=== PATIENT | female | born 1960 | race Caucasian/White ===

== ENCOUNTER 2022-02-22 17:17 | Emergency (ER) | payer MEDICARE ==
[~2022-02-22] VITALS: Ht 162.6 cm; Wt 78.5 kg
[2022-02-22 18:20] LABS: HEMATOCRIT 44.6 % (36-48); MEAN CORPUSCULAR HGB CONC 34.3 g/dL (32.0-36.0); MEAN CORPUSCULAR VOLUME 96.1 fL (79-99); PLATELET COUNT (AUTO) 262 K/uL (130-400); RED BLOOD CELL COUNT(AUTO) 4.64 MIL/uL (4.00-5.50); WHITE BLOOD COUNT (AUTO) 9.4 K/uL (4.8-10.8)
[2022-02-22 18:35] LABS: CREATININE 0.9 mg/dL (0.5-1.5); POTASSIUM 4.3 mmol/L (3.5-5.1)
[2022-02-22 18:40] LABS: ALBUMIN 3.6 g/dL (3.5-5.0)
[2022-02-22 18:41] LABS: BASOPHILS % (AUTO) 0.5 % (0.0-5.0); EOSINOPHILS % (AUTO) 1.3 % (0.0-8.0); LYMPHOCYTES % (AUTO) 9.7 % (21.0-51.0); NEUTROPHILS % (AUTO) 82.2 % (40.0-77.0)
[2022-02-22] MEDS ORDERED: 0.9%NACL 1000ML 1,000 ML IV ONE (19:00)
[2022-02-22] MEDS ORDERED: MECL-226 PO (21:07)
[2022-02-22 21:24] VITALS: BP 131/67
== END 2022-02-22 21:44 | disposition home or self-care (01) ==
LOC: EDH 17:17
DX: R42 Dizziness and giddiness (principal); Z20.822 Contact with and (suspected) exposure to COVID-19; E78.00 Pure hypercholesterolemia, unspecified; I10 Essential (primary) hypertension; K21.9 Gastro-esophageal reflux disease without esophagitis; G45.9 Transient cerebral ischemic attack, unspecified; R55 Syncope and collapse
CPT/HCPCS: 99285; 84484; 80053; 85025; 87880; 87804 ×2; 36415; 87635; 71045; 70450; 93880; 93005; C9803; 96360

== ENCOUNTER 2024-05-12 19:46 | Observation (INO) | payer MEDICARE ==
[~2024-05-12] VITALS: Ht 162.6 cm; Wt 74.8 kg
[~2024-05-12 19:46] MED LIST: MECL-226 PO
--- NOTE | 2024-05-12 19:55 | NUR ---
PT TO CT AT THIS TIME ACCOMPANIED BY PRIMARY NURSE AND MANAGER CLEANING.
[2024-05-12] MEDS ORDERED: IOHEXOL 350 MG/ML 100ML INFUS..BTL IV ONE (20:04)
--- NOTE | 2024-05-12 20:05 | ERN ---
General Chief Complaint: Trauma Activation Stated Complaint: TRAUMA FALL Time Seen by MD: 19:53 History of Present Illness Initial Comments Ms. Hinton is a very pleasant 63-year-old female with significant past medical history of alcohol abuse, history of multiple falls, breast cancer, who presents today with from right-sided facial pain. Patient has a history of recent falls . Patient reports that she was intoxicated five days ago and just fell. 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 Past Medical History Past Medical History: GERD, High Cholesterol, Hypertension Past Surgical History: None ROS Dictation Constitutional: Negative for fever,chills, and weight loss Eyes: Positive for injury and pain ENT: Positive for pain and injury Cardiovascular: Negative for chest pain, palpitations, and edema Respiratory: Negative for shortness of breath, cough, and wheezing, Abdomen/GI: Negative for abdominal pain, nausea, vomiting, diarrhea, and constipation Back: Negative for injury and pain : Negative for injury, bleeding and discharge MS/Extremity: Positive for injury Skin: Positive for discoloration Neuro: Negative for headache, weakness, numbness, tingling, and seizure Psych: Negative for suicide ideation, homicidal ideation, and hallucinations Physical Exam Physical Exam Dictation General: awake, alert Head/Face: Swelling and bruising over the right side of her face Eyes: PERRL, EOMI, vision at baseline ENT: Positive for neck pain Neck: Trachea midline, supple Cardiovascular: RRR, normal S1/S2, No MRGs, no JVD Respiratory: CTAB, no respiratory distress, No rales or wheezes Abdomen: Soft, non-tender, non-distended, normal bowel sounds, no guarding or re bound. Skin: Warm, dry, normal turgor, no rash MS/Extremity: Pulses equal, no cyanosis Neuro: COAx4, GCS 15, Psych: Normal behavior, mood, and affect normal Results Laboratory and Microbiology Lab and Micro Result Laboratory Tests Test 05/12/24 20:47 White Blood Count 8.8 K/uL (4.8-10.8) Red Blood Count 3.34 MIL/uL (4.00-5.50) L Hemoglobin 11.1 g/dL (12.0-16.0) L Hematocrit 32.2 % (36-48) L Mean Corpuscular Volume 96.4 fL (79-99) Mean Corpuscular Hemoglobin 33.2 pg (27.0-33.0) H Mean Corpuscular Hemoglobin Concent 34.5 g/dL (32.0-36.0) Red Cell Distribution Width 13.2 % (11.0-15.5) Platelet Count 257 K/uL (130-400) Mean Platelet Volume 8.4 fL (7.5-10.5) Immature Granulocyte % (Auto) 0.9 % (0-1) Neutrophils (%) (Auto) 77.6 % (40.0-77.0) H Lymphocytes (%) (Auto) 8.6 % (21.0-51.0) L Monocytes (%) (Auto) 10.9 % (3.0-13.0) Eosinophils (%) (Auto) 1.5 % (0.0-8.0) Basophils (%) (Auto) 0.5 % (0.0-5.0) Neutrophils # (Auto) 6.8 K/uL (1.8-7.7) Lymphocytes # (Auto) 0.8 K/uL (1.0-4.8) L Monocytes # (Auto) 1.0 K/uL (0.1-1.0) Eosinophils # (Auto) 0.13 K/uL (0.00-0.70) Basophils # (Auto) 0.04 K/uL (0.00-0.20) Absolute Immature Granulocyte (auto 0.08 K/uL (0-1) Nucleated Red Blood Cells 0.0 % (0.0-0.19) White Cell Morphology Comment See comments Sodium Level 123 mmol/L (136-145) L Potassium Level 3.0 mmol/L (3.5-5.1) *L Chloride Level 90 mmol/L (101-111) *L Carbon Dioxide Level 26 mmol/L (21-32) Blood Urea Nitrogen 10 mg/dL (7-18) Creatinine 1.0 mg/dL (0.5-1.0) Glomerular Filtration Rate Calc 64 mL/min (>90) Random Glucose 97 mg/dL (70-105) Total Calcium 8.9 mg/dL (8.5-10.1) Total Creatine Kinase 28 U/L (21-232) Troponin I High Sensitivity 8 ng/L (4-50) Serum Alcohol < 3 mg/dL (0-10) MDM Patient was have a depressed sodium that will need to be replaced. Patient will be admitted for careful monitoring. MDM: Differential diagnosis: Hyponatremia Rationale: Tests considered and ordered secondary to shared decision making include: labs, ECG and radiology Previous outside records reviewed: Old ER visits. Risk of complication and/or morbidity or mortality of patient management: None Medications-Per medication reconciliation Need for hospitalization: Patient does meet criteria for hospitalization. Need for emergency major/minor surgery: No There are no social concerns with this patient. Prescription drug management Prescriptions will include symptomatic care Patient's prior external medical records from other ER visits were reviewed by me as indicated. Prior testing and results from previous visits were reviewed. Prior tests were taken into account with medical decision making and resource utilization, independent historian/historians were used to obtain complete medical history. I independently interpreted the test that were performed, results were reviewed by me and considered findings on radiology if ordered. Medical management and examination interpretation discussions were had by me with other qualified healthcare professionals as indicated for the patient's care. ED Course Orders Procedure Category Date Status Time Ct Maxillofacial W/O CT 05/12/24 Resulted Contrast 19:48 Ct Head/Brain W/O CT 05/12/24 Resulted Contrast 19:48 Ct Cervical Spine W/O CT 05/12/24 Resulted Contrast 19:48 Ct Chest/Abd/Pelv CT 05/12/24 Resulted W/Conrast 19:54 12 Lead Ekg Tracing- EKG 05/12/24 Logged Technical 19:55 Cbc With Differential LAB 05/12/24 Complete 19:55 Basic Metabolic Panel LAB 05/12/24 Complete 19:55 Troponin I High LAB 05/12/24 Complete Sensitivity 19:55 Alcohol, Blood LAB 05/12/24 Complete 19:55 Creatine Kinase, Total LAB 05/12/24 Complete 19:55 Urinalysis Profile LAB 05/12/24 Logged 19:55 Iohexol (Omnipaque) PHA 05/12/24 Complete 20:04 Potassium Bicarb/Cit PHA 05/12/24 Complete Ac 25meq (K-Lyte Ta 21:30 0.9%Nacl 1000ml (Ns PHA 05/12/24 Complete 1000ml) 21:30 Magnesium LAB 05/12/24 In Process 21:31 Phosphorus LAB 05/12/24 In Process 21:31 Admit Orders ADM 05/12/24 Transmitted 21:41 Initiate Po REJI 05/12/24 Transmitted Hypokalemia Protoc 21:44 Potassium Chl 20 PHA 05/12/24 Transmitted Meq/100ml Iv 22:00 Potassium Chl 10% PHA 05/12/24 Transmitted Elixir 20meq (Kcl 10% 22:00 Potassium Chloride PHA 05/12/24 Transmitted 20meq Er (K-Dur/Klor- 22:00 Notify Physician If CPOE 05/12/24 Transmitted There Is 21:44 Notify Md On The Next CPOE 05/12/24 Transmitted 21:44 Notify Md On The CPOE 05/12/24 Transmitted Next(Cont.) 21:44 Magnesium 2gm Iv PHA 05/12/24 Transmitted 22:00 Initiate Hypoglycemia REJI 05/12/24 Transmitted Protocol 21:44 Dextrose 50%-Water PHA 05/12/24 Transmitted (D50w) 22:00 Glucagon 1mg Kit PHA 05/12/24 Transmitted (Glucagon 1mg Kit) 22:00 Vital Signs Every 4 CPOE 05/12/24 Transmitted Hours 21:44 Orthostatic Vital CPOE 05/12/24 Transmitted Signs 21:44 I&O Q Shift CPOE 05/12/24 Transmitted 21:44 Activity: Br W/Brp CPOE 05/12/24 Transmitted With Assist 21:44 O2 Order RT 05/12/24 Transmitted 21:44 Cbc With Differential LAB 05/13/24 Verified 04:00 Basic Metabolic Panel LAB 05/13/24 Verified 04:00 Magnesium LAB 05/13/24 Verified 04:00 Phosphorus LAB 05/13/24 Verified 04:00 Thyroid Stimulating LAB 05/13/24 Verified Hormone 04:00 Lovenox 40mg Sq Daily PHA 05/13/24 Transmitted 09:00 Tylenol 650mg Po Q6hr PHA 05/12/24 Transmitted Fever 22:00 Tylenol 650mg Pr PHA 05/12/24 Transmitted Q6hrs Prn 22:00 Lactulose 30ml Q6hrs PHA 05/12/24 Transmitted PRN 22:00 Colace 100mg Po Daily PHA 05/12/24 Transmitted 22:00 Restoril 15mg Po Hs PHA 05/12/24 Transmitted PRN 22:00 Zofran 4mg Ivp Q6hrs PHA 05/12/24 Transmitted PRN 22:00 Hydralazine 10mg Ivp PHA 05/12/24 Transmitted PRN 22:00 Telemetry Monitoring CPOE 05/12/24 Transmitted 21:44 Initiate REJI 05/12/24 Transmitted Hyperglycemia Protoco 21:44 Regular Insulin-Ss1/2 PHA 05/13/24 Transmitted 07:30 Current Medications Medications (Trade) Dose Ordered Sig/Marlon Route PRN Reason Start Time Stop Time Status Last Admin Dose Admin Iohexol (Omnipaque) 35,000 mg STK-MED ONCE IV 05/12/24 20:04 05/12/24 20:05 DC Potassium Bicarbonate (K-Lyte Tablet Eff 25 Meq Tablet.eff) 50 meq ONCE ONCE PO 05/12/24 21:30 05/12/24 21:31 DC Sodium Chloride 1,000 ml @ 0 mls/hr ONCE ONCE IV 05/12/24 21:30 05/12/24 21:31 DC Vital Signs Date Time Temp Pulse Resp B/P (MAP) Pulse Ox O2 Delivery O2 Flow Rate FiO2 05/12/24 19:48 96.6 82 16 136/78 97 Room Air DX & DISP Disposition: Inpatient Departure Impression: Primary Impression: Hyponatremia Condition: Stable Referrals: MARCI HARVEY MD (PCP) KRISSY POOLE MD May 12, 2024 20:05
--- NOTE | 2024-05-12 20:35 | NUR ---
PT BACK IN ROOM [address]
--- NOTE | 2024-05-12 20:36 | HMCIMG ---
CT HEAD WITHOUT CONTRAST INDICATION: Fall TECHNIQUE: Noncontrast axial helical CT images from the vertex through the skull base using 5 mm slice thickness without contrast material. CT was performed with one or more of the following dose reduction techniques: Automated exposure control, adjustment of the mA and/or kV according to patient size, or use of iterative reconstruction technique. COMPARISON: None FINDINGS: Large superior scalp hematoma. The cerebral and cerebellar hemispheres are age-appropriate in appearance. No evidence for abnormal extra-axial fluid collections or masses. The ventricles and sulci are normal in size and configuration. No evidence for intracranial parenchymal, epidural, or subdural hemorrhage, mass effect or midline shift. The fink-white matter differentiation is well preserved. No secondary evidence to suggest acute ischemia. The brainstem and cerebellum appear normal. The visualized orbits appear unremarkable. The visible paranasal sinuses and mastoid air cells are clear. The calvarium appears normal. IMPRESSION: Large superior scalp hematoma without subjacent fracture or any acute intracranial process.
--- NOTE | 2024-05-12 20:40 | HMCIMG ---
CT CERVICAL SPINE WITHOUT CONTRAST INDICATION: Neck pain TECHNIQUE: Contiguous axial computed tomography imaging using 2 mm slice thickness through the cervical spine. Reconstructions in the sagittal and coronal planes. CT was performed with one or more of the following dose reduction techniques: Automated exposure control, adjustment of the mA and/or kV according to patient size, or use of iterative reconstruction technique. COMPARISON: None. FINDINGS: Straightening of the normal lordosis may be related to overlying muscle spasm, underlying degenerative joint disease and/or patient positioning. Vertebral bodies are normal stature without evidence for compression deformity or fracture. No evidence for subluxation. Multilevel moderate cervical spondylosis. The craniocervical junction appears normal. The atlantoaxial articulation is within normal limits. The dens is intact. The pre- and paravertebral soft tissues appear unremarkable. IMPRESSION: No evidence for fracture or subluxation.
--- NOTE | 2024-05-12 20:41 | HMCIMG ---
CT FACIAL BONES WITHOUT CONTRAST INDICATION: Fall TECHNIQUE: 3D helical CT acquisition through the facial bones with coronal and sagittal reformatting. CT was performed with one or more of the following dose reduction techniques: Automated exposure control, adjustment of the mA and/or kV according to patient size, or use of iterative reconstruction technique. COMPARISON: None FINDINGS: No evidence for orbital wall or zygomatic arch fracture. The globes are symmetrical in their appearance, and normal in attenuation. The optic nerves and muscles are normal in caliber. No evidence of preseptal or postseptal mass. No evidence for facial bone fracture. No nasal bone fracture identified. Cribriform plate and janeth stanley are intact. Nasal septum is midline. The visible paranasal sinuses are clear. Middle and inferior nasal turbinates appear unremarkable. Ostiomeatal units are patent bilaterally. IMPRESSION: No evidence for acute facial fracture.
--- NOTE | 2024-05-12 20:46 | HMCIMG ---
CT CHEST WITH CONTRAST. CT ABDOMEN WITH CONTRAST. CT PELVIS WITH CONTRAST INDICATION: Chest and abdominal pain; No specific site of pain/injury provided in patient history by the ordering service, and optimal evaluation is limited as result. TECHNIQUE: Routine 5 mm thick axial images were acquired from the thoracic inlet through the pelvis after the intravenous administration of 100 mL of Isovue [address] was performed with one or more of the following dose reduction techniques: Automated exposure control, adjustment of the mA and/or kV according to patient size, or use of iterative reconstruction technique. COMPARISON: None FINDINGS: CT CHEST: Left breast scarring/surgical clips. The heart size is normal. No pericardial effusion noted. No evidence for thoracic aortic aneurysm or dissection.. The trachea and airways are patent. No evidence for pulmonary nodule, consolidation, cavitary lesion, or other abnormal pulmonary parenchymal opacity. No axillary, hilar, or mediastinal lymphadenopathy. No pleural effusion or pneumothorax identified. A few chronic posterior right rib fracture deformities. Sternum is intact. CT ABDOMEN: The liver is normal in size and smooth in contour without lesions or biliary duct dilation. The spleen is normal in size.. The gallbladder appears normal. The pancreas appears normal without pancreatic duct dilation. The adrenal glands appear normal. Both kidneys appear normal. . No evidence for intra-abdominal free air or free or organized fluid collection. No aortic aneurysmal dilation.. CT PELVIS: No evidence for free air or free or organized pelvic fluid collection. No significant pelvic adenopathy detected. Visualized small and large bowel loops appear unremarkable. Terminal ileum also appears normal. The appendix is absent. Mild thoracolumbar spondylosis. IMPRESSION: No specific site of pain/injury provided in patient history by the ordering service, and therefore, optimal evaluation is limited. No evidence for any acute thoracic, abdominal, pelvic, or spinal injury. Additional minor findings, postsurgical changes, and pertinent negatives as reported.
--- NOTE | 2024-05-12 20:56 | NUR ---
PT DOWNGRADED AT THIS TIME AND C-COLLAR REMOVED PER DR. POOLE.
[2024-05-12 21:03] LABS: BASOPHILS # (AUTO) 0.04 K/uL (0.00-0.20); BASOPHILS % (AUTO) 0.5 % (0.0-5.0); EOSINOPHILS # (AUTO) 0.13 K/uL (0.00-0.70); EOSINOPHILS % (AUTO) 1.5 % (0.0-8.0); HEMATOCRIT 32.2 % (36-48); IMMATURE GRANULOCYTE ABSOLUTE 0.08 K/uL (0-1); LYMPHOCYTES # (AUTO) 0.8 K/uL (1.0-4.8); LYMPHOCYTES % (AUTO) 8.6 % (21.0-51.0); MEAN CORPUSCULAR HEMOGLOBIN 33.2 pg (27.0-33.0); MEAN CORPUSCULAR HGB CONC 34.5 g/dL (32.0-36.0); MEAN CORPUSCULAR VOLUME 96.4 fL (79-99); MONOCYTES % (AUTO) 10.9 % (3.0-13.0); NEUTROPHILS # (AUTO) 6.8 K/uL (1.8-7.7); NEUTROPHILS % (AUTO) 77.6 % (40.0-77.0); PLATELET COUNT (AUTO) 257 K/uL (130-400); RED BLOOD CELL COUNT(AUTO) 3.34 MIL/uL (4.00-5.50); RED CELL DISTRIBUTION WIDTH 13.2 % (11.0-15.5); WHITE BLOOD COUNT (AUTO) 8.8 K/uL (4.8-10.8)
[2024-05-12 21:24] LABS: CARBON DIOXIDE 26 mmol/L (21-32); CREATINE KINASE, TOTAL 28 U/L (21-232); GLOMERULAR FILTR. RATE CALC 64 mL/min (>90); GLUCOSE,RANDOM 97 mg/dL (70-105); SODIUM SERUM 123 mmol/L (136-145); UREA NITROGEN, BLOOD 10 mg/dL (7-18)
[2024-05-12 21:25] LABS: ALCOHOL, BLOOD < 3 mg/dL (0-10)
[2024-05-12 21:28] LABS: CHLORIDE 90 mmol/L (101-111)
[2024-05-12 21:53] LABS: MAGNESIUM 1.7 mg/dL (1.80-2.40); PHOSPHORUS 3.5 mg/dL (2.5-4.9)
[2024-05-12] MEDS ORDERED: acetaMINOPHEN 650 MG SUPPOSITORY RC PRN (22:00)
[2024-05-12] MEDS ORDERED: hydrALAZine 20MG/ML VIAL IV PRN (22:00)
[2024-05-12] MEDS ORDERED: DEXTROSE 50%-WATER 50 ML DISP.SYRIN IV PRN (22:00)
[2024-05-12] MEDS ORDERED: PoTASSium chl 10% ELIXIR 20MEQ 20 MEQ/15 ML UDCUP PO PRN (22:00)
[2024-05-12] MEDS ORDERED: TEMAZepam 15 MG CAPSULE PO PRN (22:00)
[2024-05-12] MEDS ORDERED: PoTASSium chloRIDE 20MEQ/100ML 100 ML IV PRN (22:00)
[2024-05-12] MEDS ORDERED: ondanSETRON 4MG INJ IVP PRN (22:00)
[2024-05-12] MEDS ORDERED: doCUSate SODIUM 100 MG CAP PO PRN (22:00)
[2024-05-12] MEDS ORDERED: PoTASSium chloRIDE 20MEQ ER 20 MEQ ERTAB PO PRN (22:00)
[2024-05-12] MEDS ORDERED: LACTULOSE 20 GM/30 ML UDCUP PO PRN (22:00)
[2024-05-12] MEDS ORDERED: GLUCAGON 1MG KIT 1 MG ML IM PRN (22:00)
[2024-05-12] MEDS: PoTASSium BIcarbonate/CIT AC 25 MEQ TABLET.EFF PO ONE (22:16)
[2024-05-12] MEDS: 0.9%NACL 1000ML 1,000 ML IV ONE (22:16)
[2024-05-12 22:33] VITALS: O2SAT 99
--- NOTE | 2024-05-12 22:46 | HP ---
[facility] HISTORY & PHYSICAL Date Patient Seen: May 12, 2024 Time of Visit: 22:46 Supervising Physician: Dr. Israel Watt Primary Care Physician: Dr. Joel Javier Outpatient Specialists: Inpatient Consults: PROBLEM LIST: Facial injury s/p fall secondary to ETOH Electrolyte derangement (hyponatremia, hypochloremia, hypokalemia, hypomagnesemia) Acute kidney injury, GFR 64 Alcoholism Anemia Chronic problem list: Left breast cancer, GERD, hypercholesteremia, hypertension, alcoholism, prior episode of electrolyte derangement HPI: Ms. Hinton is a very pleasant 63-year-old female with history of alcohol abuse, history of multiple falls, breast cancer, who presented [place] [facility] [place] evaluation of right-sided facial pain. Patient has a history of recent falls . Patient reports that she was intoxicated five days ago and just fell. The patient has significant bruising over the right face and neck pain. Remarkable lab results: Sodium 123, potassium 3.0, chloride 90, magnesium 1.7. GFR 64, Hemoglobin 11.1, hematocrit 32.2, RBC 3.34, ED provider request patient be admitted to the hospital for the diagnosis of hyponatremia. Multiple CTs were done and were negative. Impression: No evidence of acute thoracic, abdominal, pelvic, or spinal injury. I went to assess patient at bedside, patient's partner was at bedside. Patient denied chest pain, shortness of breath, any other pain, problem or concern at present. The patient reports that she has had trouble with excessive alcohol for years. Patient admits to alcoholism. Patient reports she has tried to quit alcohol but it is hard and has not succeeded. I informed patient and significant other of labs, diagnostics, and plan of care. Patient verbalized understanding is in agreement with the plan. Plan and assessment are listed below. PAST MEDICAL HX: see above PAST SURGICAL HX: Left lumpectomy, appendectomy in 2015, tonsillectomy as a child, Port-A-Cath insertion and removal of Port-A-Cath. SOCIAL HISTORY: No tobacco, or illicit drug use + ETOH abuse FAMILY HISTORY: Mother: lung CA Sister: skin CA Coded Allergies: No Known Drug Allergies (Unverified Allergy, Unknown, 02/22/22) REVIEW OF SYSTEMS: 12 point ROS reviewed with patient. Pertinent positives mentioned above. Otherwise negative. PHYSICAL EXAM: GENERAL: Alert, weak, awake oriented x 4 HEENT: EOMI, Sclera non icteric, moist mucosa. Right eye has redness to the sclera. NECK: Supple, no JVD, trachea midline LUNGS: Clear breath sounds bilaterally. No wheezes HEART: Regular rate and rhythm. Normal S1 and S2, without murmurs ABD: Obese. Abdomen soft, nontender. Bowel sounds present EXT: No clubbing cyanosis or edema SKIN: Large dark purple bruising to right side of face. NEURO: Alert and oriented X4, no neuro deficits noted. Vital Signs (last 8hr) Date Time Temp Pulse Resp B/P (MAP) Pulse Ox O2 Delivery O2 Flow Rate FiO2 05/12/24 22:33 97.2 65 16 128/86 99 Room Air* 0 21 05/12/24 19:48 96.6 82 16 136/78 97 Room Air LABS: Hematology Labs: Test 05/12/24 20:47 Range/Units White Blood Count 8.8 4.8-10.8 K/uL Red Blood Count 3.34 L 4.00-5.50 MIL/uL Hemoglobin 11.1 L 12.0-16.0 g/dL Hematocrit 32.2 L 36-48 % Mean Corpuscular Volume 96.4 79-99 fL Mean Corpuscular Hemoglobin 33.2 H 27.0-33.0 pg Mean Corpuscular Hemoglobin Concent 34.5 32.0-36.0 g/dL Red Cell Distribution Width 13.2 11.0-15.5 % Platelet Count 257 130-400 K/uL Mean Platelet Volume 8.4 7.5-10.5 fL Immature Granulocyte % (Auto) 0.9 0-1 % Neutrophils (%) (Auto) 77.6 H 40.0-77.0 % Lymphocytes (%) (Auto) 8.6 L 21.0-51.0 % Monocytes (%) (Auto) 10.9 3.0-13.0 % Eosinophils (%) (Auto) 1.5 0.0-8.0 % Basophils (%) (Auto) 0.5 0.0-5.0 % Neutrophils # (Auto) 6.8 1.8-7.7 K/uL Lymphocytes # (Auto) 0.8 L 1.0-4.8 K/uL Monocytes # (Auto) 1.0 0.1-1.0 K/uL Eosinophils # (Auto) 0.13 0.00-0.70 K/uL Basophils # (Auto) 0.04 0.00-0.20 K/uL Absolute Immature Granulocyte (auto 0.08 0-1 K/uL Nucleated Red Blood Cells 0.0 0.0-0.19 % White Cell Morphology Comment See comments Chemistry Labs: Test 05/12/24 20:47 Range/Units Sodium Level 123 L 136-145 mmol/L Potassium Level 3.0 *L 3.5-5.1 mmol/L Chloride Level 90 *L 101-111 mmol/L Carbon Dioxide Level 26 21-32 mmol/L Blood Urea Nitrogen 10 7-18 mg/dL Creatinine 1.0 0.5-1.0 mg/dL Glomerular Filtration Rate Calc 64 >90 mL/min Random Glucose 97 70-105 mg/dL Total Calcium 8.9 8.5-10.1 mg/dL Phosphorus Level 3.5 2.5-4.9 mg/dL Magnesium Level 1.70 L 1.80-2.40 mg/dL Total Creatine Kinase 28 21-232 U/L Troponin I High Sensitivity 8 4-50 ng/L DIAGNOSTICS / RADIOLOGY RESULTS: [ ] PLAN Admit to medical floor with telemetry monitoring. Water restrictions of a 1200 mL. Correct serum slowly up to 5-6 mEq a day. Monitor sodium every 6 hours Monitor electrolytes and treat accordingly. Monitor renal and liver function. CIWA. Education on ETOH cessation. Consult case management for assistance [facility] placement in inpatient alcohol rehab. DVT and GI prophylaxis. NEURO: Minimize central acting medications as possible. Maintain fall precautions, adequate lighting during the day PULMONARY: Supplemental 02 as needed. Maintain aspiration precautions at all times CARDIOVASCULAR: Follow hemodynamics. Vital signs per facility protocol GI & NUTRITION: Continue with nutritional support. Continue stool softeners and laxatives as needed. KIDNEYS & ELECTROLYTES: Strict monitoring of intake, output and overall fluid balance. Avoid nephrotoxic medications to the extent possible. Medications to be dosed according to renal function. Monitor electrolytes and replace as needed ENDOCRINE: Maintain blood glucose between 100-180 at all times. Hypoglycemia protocol in place INFECTIOUS DISEASE: Trend temperature, WBC and procalcitonin level Follow cultures, deescalate antibiotics as soon as possible. Panculture if new onset fever ONCOLOGY/HEMATOLOGY/COAGULATION: Monitor for s/s of bleeding Monitor hemoglobin, coagulation studies as needed SKIN: Pressure ulcer prevention per facility protocol Specialty mattress ORTHO/REHAB: Continue PT/OT Prophylaxis: Continue GI and DVT prophylaxis Code Status: Full Resuscitation Disposition: TBD Other: Total patient care time exceeds 35 minutes excluding all procedures. FELIX MEEKP May 12, 2024 22:46
[2024-05-12 22:50] LABS: APPEARANCE,URINE CLEAR (CLEAR); BILIRUBIN,URINE NEGATIVE (NEGATIVE); COLOR,URINE COLORLESS (YELLOW); GLUCOSE, URINE (UA) NEGATIVE (NEGATIVE); KETONES,URINE NEGATIVE (NEGATIVE); LEUKOCYTE ESTERASE ,URINE NEGATIVE Leu/uL (NEGATIVE); NITRATE,URINE NEGATIVE (NEGATIVE); OCCULT BLOOD,URINE NEGATIVE (NEGATIVE); PROTEIN,URINE NEGATIVE (NEGATIVE); UROBILINOGEN,URINE 0.2 mg/dL (0.2-1.0)
[2024-05-12 22:51] LABS: ADD UA MICROSCOPIC YES
[2024-05-12 22:53] LABS: SQUAMOUS EPITHELIAL CELL,UR RARE /HPF (0-2); WBC,URINE 0-1 /HPF (0-1)
[2024-05-12 22:55] VITALS: BP 141/72; PULSE 82; RESP 18; TEMP 97.9
--- NOTE | 2024-05-12 22:55 | NUR ---
admit note admit to room 430 via stretcher from er, patient awake, alert, ox3, no sob no c/o pain, patients partner at bedside, ivf infusing well, teach plan of care and expected outcome, both verbalizes understanding via teach back
[2024-05-12 22:57] LABS: AMPHET/METH SCREEN,URINE NEGATIVE (NEGATIVE); BARBITURATE SCREEN, URINE NEGATIVE (NEGATIVE); BENZODIAZEPINES SCREEN,URINE NEGATIVE (NEGATIVE); CANNABINOID SCREEN,URINE NEGATIVE (NEGATIVE); COCAINE SCREEN,URINE NEGATIVE (NEGATIVE); OPIATE SCREEN,URINE NEGATIVE (NEGATIVE); PHENCYCLIDINE SCREEN,URINE NEGATIVE (NEGATIVE)
[2024-05-12 23:00] VITALS: BP 136/92; PULSE 68; RESP 20; TEMP 97.9
[2024-05-12 23:02] VITALS: BP 120/75; PULSE 76; RESP 20; TEMP 97.9
[2024-05-12] MEDS ORDERED: PANT40TA54 PO (23:12)
[2024-05-12] MEDS ORDERED: ANAS1TAB49 PO (23:12)
[2024-05-12] MEDS ORDERED: ZOLP10TA2 PO (23:12)
[2024-05-12] MEDS ORDERED: LAMO200T51 PO (23:12)
[2024-05-12] MEDS ORDERED: PRAV40TA3 PO (23:12)
[2024-05-12] MEDS ORDERED: PREG150C47 PO (23:12)
[2024-05-12] MEDS ORDERED: FLUO10CA21 PO (23:12)
[2024-05-12] MEDS ORDERED: CARV3.12 PO (23:12)
[2024-05-12] MEDS ORDERED: NEBI5TAB12 PO (23:12)
--- NOTE | 2024-05-12 23:30 | NUR ---
rounds wisam perez circuit recorder to see and examen patient with orders
[2024-05-12] MEDS: MAGNESIUM 2GM PREMIX 50ML 50 ML IV PRN (23:46)
[2024-05-13] MEDS: ARTIFICAL TEARS SOL 15 ML OU SCH ×2 (00:45→08:30)
[2024-05-13 00:49] LABS: CREATININE 0.8 mg/dL (0.5-1.0); POTASSIUM 4.1 mmol/L (3.5-5.1)
[2024-05-13] MEDS: acetaMINOPHEN 325 MG TAB PO PRN (03:21)
[2024-05-13 04:00] VITALS: BP 116/73; PULSE 65; RESP 18; TEMP 97.5
[2024-05-13 05:46] LABS: BASOPHILS # (AUTO) 0.03 K/uL (0.00-0.20); BASOPHILS % (AUTO) 0.4 % (0.0-5.0); EOSINOPHILS # (AUTO) 0.18 K/uL (0.00-0.70); EOSINOPHILS % (AUTO) 2.3 % (0.0-8.0); HEMATOCRIT 32.2 % (36-48); IMMATURE GRANULOCYTE ABSOLUTE 0.05 K/uL (0-1); LYMPHOCYTES # (AUTO) 0.8 K/uL (1.0-4.8); LYMPHOCYTES % (AUTO) 9.6 % (21.0-51.0); MEAN CORPUSCULAR HEMOGLOBIN 32.7 pg (27.0-33.0); MEAN CORPUSCULAR HGB CONC 34.2 g/dL (32.0-36.0); MEAN CORPUSCULAR VOLUME 95.8 fL (79-99); MONOCYTES % (AUTO) 13.1 % (3.0-13.0); NEUTROPHILS # (AUTO) 5.8 K/uL (1.8-7.7); PLATELET COUNT (AUTO) 270 K/uL (130-400); RED BLOOD CELL COUNT(AUTO) 3.36 MIL/uL (4.00-5.50); RED CELL DISTRIBUTION WIDTH 13.2 % (11.0-15.5); WHITE BLOOD COUNT (AUTO) 7.9 K/uL (4.8-10.8)
[2024-05-13 06:13] LABS: CREATININE 0.7 mg/dL (0.5-1.0); MAGNESIUM 2.1 mg/dL (1.80-2.40); PHOSPHORUS 3.4 mg/dL (2.5-4.9); POTASSIUM 4.2 mmol/L (3.5-5.1); THYROID STIMULATING HORMONE 0.72 uIU/mL (0.36-3.74)
[2024-05-13] MEDS: INSULIN humuLIN R 100 UNIT/ML 3ML SQ SCH (06:33)
[2024-05-13 08:00] VITALS: BP 136/75; PULSE 71; RESP 18; TEMP 97.9
[2024-05-13] MEDS: ENOXAPARIN SODIUM 40 MG/0.4 ML SYRINGE SQ SCH (09:00)
[2024-05-13] MEDS ORDERED: ZOLPIDEM TARTRATE 12.5 MG PO SCH (09:00)
[2024-05-13] MEDS: LAMOTRIGINE PO SCH (09:00)
[2024-05-13] MEDS: FLUoxetine HCL 10 MG CAPSULE PO SCH (10:12)
[2024-05-13] MEDS: PANTOPrazole 40 MG TAB DR PO SCH (10:12)
[2024-05-13] MEDS: carVEDIlol 6.25 MG TABLET PO SCH (10:12)
[2024-05-13 11:45] VITALS: BP 127/73; PULSE 65; RESP 18; TEMP 98.2
[2024-05-13 12:24] LABS: CREATININE 0.7 mg/dL (0.5-1.0); POTASSIUM 4.4 mmol/L (3.5-5.1)
--- NOTE | 2024-05-13 13:17 | PN ---
[facility] PROGRESS NOTE Date Patient Seen: May 13, 2024 Time of Visit: 13:17 Supervising Physician: [ ] Primary Care Physician: Dr. Joel Javier Outpatient Specialists: Inpatient Consults: PROBLEM LIST: Facial injury s/p fall secondary to ETOH Electrolyte derangement (hyponatremia, hypochloremia, hypokalemia, hypomagnesemia) Acute kidney injury, GFR 64 Alcoholism Anemia Chronic problem list: Left breast cancer, GERD, hypercholesteremia, hypertension, alcoholism, prior episode of electrolyte derangement INTERVAL HISTORY: [ ] REVIEW OF SYSTEMS: 12 point ROS reviewed with patient. Pertinent positives mentioned above. Otherwise negative. PHYSICAL EXAM: GENERAL: Alert, weak, awake oriented x 4 HEENT: EOMI, Sclera non icteric, moist mucosa. Right eye has redness to the sclera. NECK: Supple, no JVD, trachea midline LUNGS: Clear breath sounds bilaterally. No wheezes HEART: Regular rate and rhythm. Normal S1 and S2, without murmurs ABD: Obese. Abdomen soft, nontender. Bowel sounds present EXT: No clubbing cyanosis or edema SKIN: Large dark purple bruising to right side of face. NEURO: Alert and oriented X4, no neuro deficits noted. Vital Signs (last 8hr) Date Time Temp Pulse Resp B/P (MAP) Pulse Ox O2 Delivery O2 Flow Rate FiO2 05/13/24 11:45 98.2 65 18 127/73 99 Room Air 21 05/13/24 10:12 136/75 05/13/24 08:00 97.9 71 18 136/75 100 Room Air 21 LABS: Hematology Labs: Test 05/13/24 05:21 05/12/24 20:47 Range/Units White Blood Count 7.9 4.8-10.8 K/uL Red Blood Count 3.36 L 4.00-5.50 MIL/uL Hemoglobin 11.0 L 12.0-16.0 g/dL Hematocrit 32.2 L 36-48 % Mean Corpuscular Volume 95.8 79-99 fL Mean Corpuscular Hemoglobin 32.7 27.0-33.0 pg Mean Corpuscular Hemoglobin Concent 34.2 32.0-36.0 g/dL Red Cell Distribution Width 13.2 11.0-15.5 % Platelet Count 270 130-400 K/uL Mean Platelet Volume 8.6 7.5-10.5 fL Immature Granulocyte % (Auto) 0.6 0-1 % Neutrophils (%) (Auto) 74.0 40.0-77.0 % Lymphocytes (%) (Auto) 9.6 L 21.0-51.0 % Monocytes (%) (Auto) 13.1 H 3.0-13.0 % Eosinophils (%) (Auto) 2.3 0.0-8.0 % Basophils (%) (Auto) 0.4 0.0-5.0 % Neutrophils # (Auto) 5.8 1.8-7.7 K/uL Lymphocytes # (Auto) 0.8 L 1.0-4.8 K/uL Monocytes # (Auto) 1.0 0.1-1.0 K/uL Eosinophils # (Auto) 0.18 0.00-0.70 K/uL Basophils # (Auto) 0.03 0.00-0.20 K/uL Absolute Immature Granulocyte (auto 0.05 0-1 K/uL Nucleated Red Blood Cells 0.0 0.0-0.19 % White Cell Morphology Comment See comments Chemistry Labs: Test 05/13/24 11:55 05/13/24 05:21 05/12/24 20:47 Range/Units Sodium Level 131 L 136-145 mmol/L Potassium Level 4.4 3.5-5.1 mmol/L Chloride Level 96 L 101-111 mmol/L Carbon Dioxide Level 30 21-32 mmol/L Blood Urea Nitrogen 6 L 7-18 mg/dL Creatinine 0.7 0.5-1.0 mg/dL Glomerular Filtration Rate Calc 98 >90 mL/min Random Glucose 107 H 70-105 mg/dL Total Calcium 8.7 8.5-10.1 mg/dL Phosphorus Level 3.4 2.5-4.9 mg/dL Magnesium Level 2.10 1.80-2.40 mg/dL Thyroid Stimulating Hormone (TSH) 0.72 0.36-3.74 uIU/mL Total Creatine Kinase 28 21-232 U/L Troponin I High Sensitivity 8 4-50 ng/L DIAGNOSTICS / RADIOLOGY RESULTS: [ ] PLAN Admit to medical floor with telemetry monitoring. Water restrictions of a 1200 mL. Correct serum slowly up to 5-6 mEq a day. Monitor sodium every 6 hours Monitor electrolytes and treat accordingly. Monitor renal and liver function. CIWA. Education on ETOH cessation. Consult case management for assistance [facility] placement in inpatient alcohol rehab. DVT and GI prophylaxis. NEURO: Minimize central acting medications as possible. Maintain fall precautions, adequate lighting during the day PULMONARY: Supplemental 02 as needed. Maintain aspiration precautions at all times CARDIOVASCULAR: Follow hemodynamics. Vital signs per facility protocol GI & NUTRITION: Continue with nutritional support. Continue stool softeners and laxatives as needed. KIDNEYS & ELECTROLYTES: Strict monitoring of intake, output and overall fluid balance. Avoid nephrotoxic medications to the extent possible. Medications to be dosed according to renal function. Monitor electrolytes and replace as needed ENDOCRINE: Maintain blood glucose between 100-180 at all times. Hypoglycemia protocol in place INFECTIOUS DISEASE: Trend temperature, WBC and procalcitonin level Follow cultures, deescalate antibiotics as soon as possible. Panculture if new onset fever ONCOLOGY/HEMATOLOGY/COAGULATION: Monitor for s/s of bleeding Monitor hemoglobin, coagulation studies as needed SKIN: Pressure ulcer prevention per facility protocol Specialty mattress ORTHO/REHAB: Continue PT/OT Prophylaxis: Continue GI and DVT prophylaxis Code Status: Full Resuscitation Disposition: TBD Other: Total patient care time exceeds 35 minutes excluding all procedures. MARTIR MARKS May 13, 2024 13:17
--- NOTE | 2024-05-13 15:55 | NUR ---
cm note met with pt and lives with spouse paulo, is independent with adls/ambulation. no longer works, dc [place]. discussed md orders for alcohol/drug rehab resources. pt has been at one in [facility]. in the past, and is familiar, admits to drinking heavy at times, and is open to alcohol rehab possibly ip or op. is aware of dangers with falling and health concerns. provided list of IP, OP rehab facilities and hotline #s for alcohol rehab assistance. including [facility] [place]. pt state she plans to call and set up an appointment. and provide the intake needed for assistance. updated primary nurse Nolan on above. Addendum: 05/13/24 at 1603 by BOUBACAR YIP CM Amended: Links added.
[2024-05-13 16:00] VITALS: BP 137/81; PULSE 69; RESP 18; TEMP 98
--- NOTE | 2024-05-13 16:47 | DS ---
[facility] DISCHARGE SUMMARY Date Patient Seen: May 13, 2024 Time of Visit: 16:47 Supervising Physician: [Dr. Watt] Primary Care Physician: Dr. Joel Javier Outpatient Specialists: Inpatient Consults: PROBLEM LIST: Facial injury s/p fall secondary to ETOH Electrolyte derangement (hyponatremia, hypochloremia, hypokalemia, hypomagnesemia) Acute kidney injury, GFR 64 Alcoholism Anemia Chronic problem list: Left breast cancer, GERD, hypercholesteremia, hypertension, alcoholism, prior episode of electrolyte derangement HOSPITAL COURSE: HPI (per admitting provider) Ms. Hinton is a very pleasant 63-year-old female with history of alcohol abuse, history of multiple falls, breast cancer, who presented to [facility] ED for evaluation of right-sided facial pain. Patient has a history of recent falls . Patient reports that she was intoxicated five days ago and just fell. The patient has significant bruising over the right face and neck pain. Remarkable lab results: Sodium 123, potassium 3.0, chloride 90, magnesium 1.7. GFR 64, Hemoglobin 11.1, hematocrit 32.2, RBC 3.34, ED provider request patient be admitted to the hospital for the diagnosis of hyponatremia. Multiple CTs were done and were negative. Impression: No evidence of acute facial, thoracic, abdominal, pelvic, or spinal injury. I went to assess patient at bedside, patient's partner was at bedside. Patient denied chest pain, shortness of breath, any other pain, problem or concern at present. The patient reports that she has had trouble with excessive alcohol for years. Patient admits to alcoholism. Patient reports she has tried to quit alcohol but it is hard and has not succeeded. She was monitored overnight and hydrated with IV fluids. Her sodium improved to 131 upon discharge. No s/s of alcohol withdrawal were observed. She was discharged in stable condition to continue all previous medications. Patient was counseled on alcohol cessation. CHRONIC PROBLEMS: continue previous management per PCP unless otherwise indicated DISCHARGE MEDICATIONS: Continue all current medications as previously prescribed. Pt hemodynamically stable and afebrile at time of discharge. PCP notified of patients admission, hospital course and discharge. Continued Medications: Anastrozole (Arimidex) 1 Mg Tab 1 TAB PO HS for 30 Days, #30 TAB 0 Refills Carvedilol (Carvedilol) 3.125 Mg Tablet 1 TAB PO BID for 30 Days, #60 TAB 0 Refills Fluoxetine HCl (Prozac) 10 Mg Capsule 1 CAP PO DAILY for 30 Days, #30 CAP 0 Refills Lamotrigine (Lamotrigine) 200 Mg Tab.er.24 1 TAB PO DAILY for 30 Days, #30 TAB 0 Refills Nebivolol HCl (Nebivolol HCl) 5 Mg Tablet 1 TAB PO HS for 30 Days, #30 TAB 0 Refills Pantoprazole Sodium (Pantoprazole Sodium) 40 Mg Tablet.dr 1 TAB PO DAILY for 30 Days, #30 TAB 0 Refills Pravastatin Sodium (Pravastatin Sodium) 40 Mg Tablet 1 TAB PO HS for 30 Days, #30 TAB 0 Refills Pregabalin (Pregabalin) 150 Mg Capsule 1 CAP PO HS MDD 2 Capsule(s) for 30 Days, #60 CAP 0 Refills Zolpidem Tartrate (Ambien) 10 Mg Tablet 12.5 MG PO HSPRN, TAB PHYSICAL EXAM: GENERAL: Alert, weak, awake oriented x 4 HEENT: EOMI, Sclera non icteric, moist mucosa. Right eye has redness to the sclera. NECK: Supple, no JVD, trachea midline LUNGS: Clear breath sounds bilaterally. No wheezes HEART: Regular rate and rhythm. Normal S1 and S2, without murmurs ABD: Obese. Abdomen soft, nontender. Bowel sounds present EXT: No clubbing cyanosis or edema SKIN: Large dark purple bruising to right side of face. NEURO: Alert and oriented X4, no neuro deficits noted. FOLLOW-UP: F/U with PCP in 2-3 days for reevaluation. Alcohol cessation discussed. RECOMMENDATIONS: See Discharge Instructions This case was seen and discussed with my supervising physician. More than 30 minutes spent on discharge process, including evaluation of the patient, discussion with nursing staff, medication reconciliation and follow-up appointments MARTIR MARKS May 13, 2024 16:47
--- NOTE | 2024-05-13 19:51 | EKG ---
[facility] Test Date: 2024-05-12 Test Time: 20:37:57 Pat Name: MARITZA KULKARNI Department: [facility] Room: 429 1 Gender: F Wafer Slicer: [phone] : 1960 Requested By: BHAVESH MICHAEL Order Number: [id number] Reading MD: Joyce Ramirez Measurements Intervals [place] Rate: 75 P: 0 UT: 149 QRS: -8 QRSD: 97 T: 43 QT: 405 QTc: 454 Interpretive Statements Sinus rhythm Low voltage, precordial leads Compared to ECG 02/22/2022 17:55:42 T-wave abnormality no longer present Electronically Signed On 05-14-2024 11:34:09 [employer] by Joyce Ramirez Please click the below link to view image of tracing.
[2024-05-13] MEDS ORDERED: pregABALin 75 MG CAPSULE PO SCH (21:00)
[2024-05-13] MEDS ORDERED: NEBIVOLOL HCL PO SCH (21:00)
[2024-05-13] MEDS ORDERED: atorVAStatin 10 MG TABLET PO SCH (21:00)
[2024-05-13] MEDS ORDERED: ANASTROZOLE PO SCH (21:00)
== END 2024-05-13 18:45 | disposition home or self-care (01) ==
LOC: EDH 19:46 → EDHIP 21:41 → 4AH 23:09
PROVIDERS: ADMIT Internal Medicine Critical Care Medicine; ATTEND Internal Medicine Critical Care Medicine
DX: S00.83XA Contusion of other part of head, initial encounter (principal); E87.1 Hypo-osmolality and hyponatremia; E83.42 Hypomagnesemia; D64.9 Anemia, unspecified; E87.8 Other disorders of electrolyte and fluid balance, not elsewhere classified; N17.9 Acute kidney failure, unspecified; F10.20 Alcohol dependence, uncomplicated; R29.6 Repeated falls; M54.2 Cervicalgia; I10 Essential (primary) hypertension; K21.9 Gastro-esophageal reflux disease without esophagitis; C50.912 Malignant neoplasm of unspecified site of left female breast; E78.00 Pure hypercholesterolemia, unspecified; Z85.3 Personal history of malignant neoplasm of breast; Z91.81 History of falling; Z79.899 Other long term (current) drug therapy; W19.XXXA Unspecified fall, initial encounter; Y93.89 Activity, other specified; Y92.89 Other specified places as the place of occurrence of the external cause; Y99.8 Other external cause status; Y90.0 Blood alcohol level of less than 20 mg/100 ml
CPT/HCPCS: 96374; 99285; 82550; 83735 ×2; 84100 ×2; 84484; 80048 ×4; 80305; 85025 ×2; 81001; 36415 ×2; 70450; 72125; 71260; 70486; 74177; 93005; 84443; G0378 ×21; J3475; J7030; Q9967